=== PATIENT | female | born 1995 | race American Indian/Alaskan Native ===

== ENCOUNTER 2018-07-09 16:22 | Emergency (ER) | payer OTHER ==
[2018-07-09 17:11] LABS: Basophils # (Auto) 0.1 K/mm3 (0.0-0.1); Basophils % (Auto) 1.1 % (0.0-1.8); Eosinophils # (Auto) 0.1 K/mm3 (0.0-0.4); Eosinophils % (Auto) 1.1 % (0.0-4.3); Hematocrit 39.9 % (30.3-42.9); Hemoglobin 13.5 gm/dl (10.1-14.3); Lymphocytes # (Auto) 2.7 K/mm3 (1.2-5.4); Lymphocytes % (Auto) 45.8 % (13.4-35.0); Mean Corpuscular HGB Conc 34 % (30-34); Mean Corpuscular Hemoglobin 32 pg (28-32); Mean Corpuscular Volume 94 fl (79-97); Monocytes # (Auto) 0.4 K/mm3 (0.0-0.8); Monocytes % (Auto) 6.3 % (0.0-7.3); Platelet Count 375 K/mm3 (140-440); Red Blood Count 4.26 M/mm3 (3.65-5.03); Red Cell Distribution Width 13.8 % (13.2-15.2)
[2018-07-09 17:31] LABS: BUN/Creatinine Ratio 17; Blood Urea Nitrogen 12 mg/dL (7-17); Calcium 9.1 mg/dL (8.4-10.2); Hemolysis Index 110
--- NOTE | 2018-07-09 18:39 | Emergency Department Report ---
HPI - General Chief Complaint: Psych Time Seen by Provider: 07/09/18 16:48 - HPI HPI: 23-year-old -English female presents to the emergency department via EMS from home with the need for a mental health evaluation. The patient says that for the past week she has been hearing voices and/or having some type of internal stimuli. She says that these voices or inclinations are "making me do some strange things." For example, the patient says that they will tell her to go outside and then come back inside and repeat this process. The patient says that if she does not do it that she either feels or is told that something bad will happen to her. 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 Once again she says that if she does not follow these commands and then she will feel like something bad will happen to her and even says that the voices tell her that if she does not do it she will . She also says that these voices will belittle her and tell her things like her life is not worth living. However the patient says she does not want to and she does not want to harm herself. She also denies any homicidal ideations. She denies any visual hallucinations. The patient does not have any past medical or psychiatric history. She is concerned she has a cousin, aunt, and a grandmother who have had schizophrenia. ED Past Medical Hx - Past Medical History Previous Medical History?: No - Surgical History Past Surgical History?: No - Social History Smoking Status: Never Smoker Substance Use Type: None - Medications Home Medications: Home Medications Medication Instructions Recorded Confirmed Last Taken Type Azithromycin [Zithromax Z-KAUSHIK] 250 mg PO DAILY 5 Days #6 tab 04/28/18 Unknown Rx Cetirizine HCl [ZyrTEC] 10 mg PO QDAY 14 Days #14 capsule 04/28/18 Unknown Rx Fluticasone [Flonase] 1 spray NS QDAY 14 Days #1 bottle 04/28/18 Unknown Rx Ondansetron [Zofran ODT TAB] 8 mg PO Q8HR PRN #12 tab.rapdis 04/28/18 Unknown Rx ED Review of Systems ROS: Stated complaint: SUICIDAL Other details as noted in HPI Comment: All other systems reviewed and negative Constitutional: denies: chills, fever Eyes: denies: eye pain, vision change ENT: denies: ear pain Respiratory: denies: cough, shortness of breath Cardiovascular: denies: chest pain, palpitations Gastrointestinal: denies: abdominal pain, vomiting Genitourinary: denies: dysuria, discharge Musculoskeletal: denies: back pain, arthralgia Skin: denies: rash, lesions Neurological: denies: headache, weakness Psychiatric: auditory hallucinations. denies: visual hallucinations, homicidal thoughts Physical Exam - Physical Exam Vital Signs: Vital Signs 07/09/18 07/09/18 16:22 18:08 Temperature 98.5 F 98.5 F Pulse Rate 87 79 Respiratory 18 16 Rate Blood Pressure 122/91 124/78 [Right] O2 Sat by Pulse 96 96 Oximetry Physical Exam: GENERAL: The patient is well-developed well-nourished. HEENT: Normocephalic. Atraumatic. Patient has moist mucous membranes. EYES: Extraocular motions are intact. NECK: Supple. Trachea is midline. CHEST/LUNGS: Clear to auscultation. There is no respiratory distress noted. HEART/CARDIOVASCULAR: Regular. There is no tachycardia. There is no obvious murmur. ABDOMEN: Abdomen is soft, nontender. Patient has normal bowel sounds. There is no abdominal distention. SKIN: Skin is warm and dry. NEURO: The patient is awake, alert, and oriented. The patient is cooperative. The patient has no focal neurologic deficits. The patient has normal speech. MUSCULOSKELETAL: There is no tenderness or deformity. There is no evidence of acute injury. ED Course Vital Signs 07/09/18 07/09/18 16:22 18:08 Temperature 98.5 F 98.5 F Pulse Rate 87 79 Respiratory 18 16 Rate Blood Pressure 122/91 124/78 [Right] O2 Sat by Pulse 96 96 Oximetry ED Medical Decision Making - Lab Data Result diagrams: 07/09/18 16:46 07/09/18 16:46 - Medical Decision Making This patient presents to the emergency department with complaint of some type of either auditory hallucination or some type of inclination that is causing her to have abnormal thoughts and perform repetitive or unnecessary actions. The patient says that if she does not do the things that she thinks is told to do that she will start feeling as if something bad will happen to her. She has also mentioned that these voices or thoughts are causing her to feel devalued. She does not feel that she has anything at this time that is important that gives her any value. She denies wanting to harm herself but does say that these voices or thoughts make her feel as if her life is not important and that would be no issues if it ended. Some of the patient's complaints or descriptions appear consistent with obsessive-compulsive disorder. However there are also some signs of internal stimuli. There is a family history of schizophrenia. The patient was seen by the psych sawyer helper, Shabana, who agrees that the patient is rather withholding and at this time we are unable to guarantee patient's safety. For this reason she has been made a 1013. She will be seen b y the psychiatric team but otherwise she is medically cleared for psychiatric placement if necessary. - Differential Diagnosis obsessive-compulsive disorder, schizophrenia, bipolar disorder Critical Care Time: No Critical care attestation.: If time is entered above; I have spent that time in minutes in the direct care of this critically ill patient, excluding procedure time. ED Disposition Clinical Impression: Medical clearance for psychiatric admission, Obsessive behavior Disposition: DC/TX-65 PSY HOSP/PSY UNIT Is pt being admited?: No Condition: Stable Referrals: PRIMARY CARE, [Referring] - 3-5 Days Time of Disposition: 20:32
[2018-07-09 18:42] LABS: Bacteria,Urine 1+ /HPF (Negative); Bilirubin,Urine NEG (Negative); Blood,Urine SM (Negative); Color,Urine Yellow (Yellow); Mucus,Urine 3+ /HPF
[2018-07-09 18:49] LABS: Amphetamine Screen,Urine PRESUMPTIVE NEGATIVE; Benzodiazepines Screen,Urine PRESUMPTIVE NEGATIVE; Cannabinoid Screen,Urine PRESUMPTIVE NEGATIVE; Cocaine Screen,Urine PRESUMPTIVE NEGATIVE; Methadone Screen,Urine PRESUMPTIVE NEGATIVE; Opiate Screen,Urine PRESUMPTIVE NEGATIVE
--- NOTE | 2018-07-10 13:38 | Consultation ---
History of Present Illness - Reason for Consult Consult date: 07/10/18 Reason for consult: Mental Health Evaluation Requesting physician: HARMAN BOOGIE - Chief Complaint Chief complaint: "Something isn't right with me" - History of Present Psychiatric Illness 23-year-old -[place] female presents to the emergency department via EMS from home with the need for a mental health evaluation. Today the patient is calm during the assessment. She stated feeling "strange" the past few weeks. She stated that she has to return home often once she have left to make sure her home was secured. She stated that she do not trust herself, so she check behind herself often. She stated that she do not know why she is living because she does not have a plan for the future. She was asked to elaborate more about her life, but she would not answer. She admitted to feeling sad/hopeless about her future and rate her depression 7/10, with 10 being the worse. She stated that she have family local, but they do not communicate often. She denies SI/HI's and AVH's. She denies erratic sleep and a poor appetite. She denies recreational drug use and alcohol consumption (etoh). Medications and Allergies Allergies Allergy/AdvReac Type Severity Reaction Status Date / Time amoxicillin Allergy Unknown Verified 07/09/18 16:41 Penicillins Allergy Unknown Verified 07/09/18 16:41 Home Medications Medication Instructions Recorded Confirmed Last Taken Type No Known Home Medications [No 07/11/18 07/11/18 Unknown History Reported Home Medications] Past psychiatric history - Past Medical History Past Medical History: No medical history Past Surgical History: No surgical history - past Psychiatric treatment and history psychiatric treatment history: Denies a psy hx and a fam psy hx. - Social History Social history: lives with family Mental Status Exam - Vital signs Last Vital Signs Temp 98.1 F 07/10/18 06:00 Pulse 88 07/10/18 06:00 Resp 18 07/10/18 06:00 BP 116/73 07/10/18 06:00 Pulse Ox 100 07/10/18 06:00 - Exam Narrative exam: MSE: Appearance: calm, cooperative Behavior: regular eye contact Speech: regular rate and tone Mood: "depressed" Affect: flat Thought Process: circumstantial Thought Content: denies SI/HI's and AVH's Motor Activity: ambulatory Cognition: A/O x3 Insight: variable to fair Judgment: variable to fair Results Result Diagrams: 07/09/18 16:46 07/09/18 16:46 Abnormal lab results 07/09/18 07/09/18 07/09/18 Range/Units 16:46 16:46 16:46 Lymph % (Auto) 45.8 H (13.4-35.0) % Salicylates < 0.3 L (2.8-20.0) mg/dL Acetaminophen < 5.0 L (10.0-30.0) ug/mL All other labs normal. Assessment and Plan Assessment and plan: Impression: MDD, OCD. Today the patient is calm during the assessment. DDx: R/O Bipolar DO Recommendation/Plan: Continue 1013 and gather collateral information. Start Paxil 20 mg daily for depression/OCD. Discussed possible suicdality/medication induced haley with the patient reference Paxil. Dispo: Once collateral information is gathered, proper dispo will be determined. Staffed with Dr Ford Joe.
[2018-07-10] MEDS ORDERED: PAXIL PO SCH (14:00)
[2018-07-11 03:19] VITALS: BP 112/83
--- NOTE | 2018-07-11 12:29 | Progress Note ---
Subjective - Reason for Consult Consult date: 07/11/18 Reason for consult: Psychiatry Follow-up - Chief Complaint Chief complaint: "I will do better" 23-year-old -[place] female presents to the emergency department via EMS from home with the need for a mental health evaluation. Today the patient is calm during the assessment. Per collateral information from the patient's mother Kelsey Childs at [phone], she stated that her daughter gets sad during this time of year because her grandfather 3 yrs ago in June. She stated that her daughter have never attempted suicide or mentioned being suicidal in the past. She stated that she is the patient's support system and will pick her up once discharged. The patient confirmed what her mother said about her reference the of her grandfather. She denies SI/HI's and AVH's. She stated that she will follow up with outpatient psy services. Mental Status Exam - Vital signs Last Vital Signs Temp 97.9 F 07/11/18 03:14 Pulse 80 07/11/18 03:14 Resp 18 07/11/18 03:14 BP 112/83 07/11/18 03:14 Pulse Ox 100 07/11/18 03:14 - Exam Narrative exam: MSE: Appearance: calm, cooperative Behavior: regular eye contact Speech: regular rate and tone Mood: "much better" Affect: flat Thought Process: linear Thought Content: denies SI/HI's and AVH's Motor Activity: ambulatory Cognition: A/O x3 Insight: appropriate Judgment: appropriate Assessment and Plan Impression: MDD, OCD. Today the patient is calm during the assessment. The patient is no threat to self. DDx: R/O Bipolar DO Recommendation/Plan: Rescind 1013. and continue Paxil 20 mg daily for depression/OCD. Discussed possible suicdality/medication induced haley with the patient reference Paxil. Dispo: The patient can follow up with [facility] for outpatient psy services. Staffed with Dr Delano Joe.
--- NOTE | 2018-07-12 14:17 | Progress Note ---
Mental Status Exam - Vital signs Last Vital Signs Temp 97.9 F 07/11/18 03:14 Pulse 80 07/11/18 03:14 Resp 18 07/11/18 03:14 BP 112/83 07/11/18 03:14 Pulse Ox 100 07/11/18 03:14
== END 2018-07-11 14:42 | disposition home or self-care (01) ==
LOC: ED 16:22 → EEVIPCON 16:22 → ED 07-11 14:42
DX: F32.9 Major depressive disorder, single episode, unspecified (principal); F42.9 Obsessive-compulsive disorder, unspecified; Z88.1 Allergy status to other antibiotic agents; Z88.0 Allergy status to penicillin
CPT/HCPCS: 36415; 80048; 80307; 81001; 84703; 85025; 99284; G0480; 80320

== ENCOUNTER 2018-11-07 15:46 | Emergency (ER) | payer MEDICAID ==
[2018-11-07] MEDS ORDERED: IBUPROFEN PO ONE (16:03)
--- NOTE | 2018-11-07 16:03 | Event Note ---
ED Screening Note ED Screening Note: R BIG TOE PAIN This initial assessment/diagnostic orders/clinical plan/treatment(s) is/are subject to change based on patients health status, clinical progression and re- assessment by fellow clinical providers in the ED. Further treatment and workup at subsequent clinical providers discretion. Patient/guardian urged not to elope from the ED as their condition may be serious if not clinically assessed and managed. Initial orders include:
--- NOTE | 2018-11-07 17:00 | Emergency Department Report ---
ED Back Pain/Injury HPI - General Chief Complaint: Extremity Injury, Lower Stated Complaint: TOE INJURY Time Seen by Provider: 11/07/18 16:02 Source: patient Limitations: No Limitations - History of Present Illness Initial Comments: STUBBED TOE ON DRESSER. HERE WITH PAIN. SENT BY URGENT CARE. AMBULATORY. NO SUBUNGAL. NEUROVASC INTACT. NO OTHER INJURY. STATES SHE FELL OUT OF BED. - Related Data Previous Rx's Medication Instructions Recorded Last Taken Type PARoxetine [Paxil] 20 mg PO DAILY #15 tablet 07/11/18 Unknown Rx Allergies Allergy/AdvReac Type Severity Reaction Status Date / Time amoxicillin Allergy Unknown Verified 07/09/18 16:41 Penicillins Allergy Unknown Verified 07/09/18 16:41 ED Review of Systems ROS: Stated complaint: TOE INJURY Other details as noted in HPI Comment: All other systems reviewed and negative ED Past Medical Hx - Past Medical History Medical history: no medical history Family history: hypertension ED Back Pain Physical Exam - Exam General: Vital signs noted. No distress. Alert and acting appropriately. Back/Abdomen: No Abdominal Tenderness, No Perithoracic Tenderness, No Perilumbar Tenderness, No Sacroiliac Tenderness, No Flank Tenderness, No Straight Leg Raise Pain Neuro: Yes Normal Sensation, Yes Normal DTR's, Yes Normal Gait, No Motor Weakness Ed Back Pain Tests - Tests Tests: Normal X Rays ED Medical Decision Making - Radiology Data Radiology results: report reviewed, image reviewed - Medical Decision Making NO FRACTURE KEITH TAPE FOR COMFORT EDUCATED ON CARE VS NORMAL RN TO RECORD DC HOME WITH DC PLAN OF CARE Critical care attestation.: If time is entered above; I have spent that time in minutes in the direct care of this critically ill patient, excluding procedure time. ED Disposition Clinical Impression: Contusion Disposition: DC-01 TO HOME OR SELFCARE Is pt being admited?: No Does the pt Need Aspirin: No Condition: Stable Instructions: Contusion in Adults (ED) Additional Instructions: ortho shoe for comfort rest ice elevate follow up with Dr Roach if persists MOTRIN OR TYLENOL FOR PAIN XRAY NEG FOR FRACTURE Referrals: KHLOE ROACH MD [Staff Physician] - 3-5 Days Time of Disposition: 17:17
--- NOTE | 2018-11-07 17:09 | XRay Report ---
PROCEDURE: XR FOOT 3+V RT TECHNIQUE: Right foot radiographs, AP, lateral, and oblique views. HISTORY: FOOT PAIN COMPARISONS: None . FINDINGS: Fracture (s) and/or Dislocation(s): None . Alignment: Normal . Joint space(s): Normal . Soft tissues: Normal . Bone mineralization: Normal . Foreign bodies: None . Calcaneal spurring: None . IMPRESSION: Normal Examination . This document is electronically signed by Jadyn Hill., November 07 2018 05:07:48 PM ET
== END 2018-11-07 17:30 | disposition home or self-care (01) ==
LOC: ED 15:46
DX: S90.121A Contusion of right lesser toe(s) without damage to nail, initial encounter (principal); Z88.0 Allergy status to penicillin; Z88.1 Allergy status to other antibiotic agents; Z79.899 Other long term (current) drug therapy; X58.XXXA Exposure to other specified factors, initial encounter; Y93.89 Activity, other specified; Y92.89 Other specified places as the place of occurrence of the external cause; Y99.8 Other external cause status
CPT/HCPCS: 99283